=== PATIENT | female | born 1960 | race Caucasian/White ===

== ENCOUNTER 2023-06-05 09:22 | Day surgery (SDC) | payer BC ==
[2023-06-05] MEDS ORDERED: Sodium Chloride 0.9(Preservative Free) 10 ML IJ ONE (09:23)
[2023-06-05] MEDS ORDERED: Depo-Medrol 40 MG/ML IM ONE (09:23)
[2023-06-05] MEDS ORDERED: LIDOCAINE HCL 1% 50 MG/5 ML VL PF IJ ONE (09:23)
[2023-06-05] MEDS ORDERED: DIPRIVAN 200 MG/20 ML IV ONE (10:11)
[2023-06-05] MEDS ORDERED: Lactated Ringers 1,000 ML IV ONE (10:23)
--- NOTE | 2023-06-05 11:37 | XRAY ---
Indication: Thoracic ELI. Intraoperative fluoroscopy provided for 26 seconds. 2 digital spot image submitted for interpretation demonstrates posterior needle tip projecting lower thoracic spine, approximately superior T10 level. Small amount of contrast injected for needle tip placement. Correlate with intraoperative findings/report.
--- NOTE | 2023-06-05 12:39 | XRAY ---
26 seconds of fluoroscopy was used in surgery for a thoracic ELI.
== END 2023-06-05 10:40 | disposition home or self-care (01) ==
LOC: SDC-PAIN 09:22
PROVIDERS: ATTEND Psychiatry & Neurology Pain Medicine
DX: M54.14 Radiculopathy, thoracic region (principal)
CPT/HCPCS: 62321; 72072; 77003; J1030; J2001; J2704; Q9966